=== PATIENT | male | born 2000 | race American Indian/Alaskan Native ===

== ENCOUNTER 2020-07-02 11:11 | Emergency (ER) | payer MEDICAID ==
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
== END 2020-07-02 12:54 | disposition home or self-care (01) ==
LOC: FB.ED 11:11
DX: F12.921 Cannabis use, unspecified with intoxication delirium (principal); F17.210 Nicotine dependence, cigarettes, uncomplicated
CPT/HCPCS: 36415; 80053; 84443; 84484; 85025; 86140; 99284